=== PATIENT | female | born 1995 | race Caucasian/White ===

== ENCOUNTER 2016-09-29 18:57 | Emergency (ER) | payer OTHER ==
[~2016-09-29] VITALS: Ht 175.3 cm; Wt 95.1 kg
[~2016-09-29 18:57] MED LIST: AMOX500T PO; DEPO400I IM; DICL75 PO
[2016-09-29 19:01] VITALS: BP 141/84; PULSE 81; RESP 14; TEMP 97.9; O2SAT 100
[2016-09-29 19:10] VITALS: BP 143/61; PULSE 75; RESP 18; O2SAT 100
[2016-09-29] MEDS ORDERED: ORTHTAB4 PO (19:19)
[2016-09-29] MEDS ORDERED: [UNRECOGNIZED DRUG - CODE] (19:19)
--- NOTE | 2016-09-29 19:26 | PD ---
HPI Chief Complaint: Complaint Time Seen by Provider: 19:21 Travel History International Travel<30 days: No Contact w/Intl Traveler<30days: No Traveled to known affect area: No History of Present Illness HPI 21-year-old female presents to the emergency department by private transportation the care of family for evaluation of one day of dysuria 5/10 in intensity with urinary urgency and frequency. Patient denies fever chills nausea vomiting generalized abdominal pain flank pain hematuria vaginal discharge or vaginal bleeding. Patient's last period was one week ago and heavy flow however she has just changed from Depakote injections to control pills. Patient is a nonsmoker. Patient is unable to identify exacerbating or alleviating factors other than she does note burning with urination. Patient denies any known exposure to persons with sexual transmitted disease. Patient denies again any vaginal discharge or abnormal vaginal bleeding. Patient has had urinary tract infection once before in the past but does not have him routinely. Patient also has history of migraines and denies previous surgeries. Patient did take a one-time dose of Azo over-the -counter. PFSH Past Medical History Narrative Medical Migraines; no tobacco use; nursing notes reviewed Diminished Hearing: No ?: Unknown Social History Alcohol Use: No Tobacco Use: No Substance Use: No Allergies-Medications (Allergen,Severity, Reaction): Coded Allergies: No Known Allergies (Verified , 09/29/16) Reported Meds & Prescriptions Reported Meds & Active Scripts Active Reported Azo Urinary Pain Relief (Phenazopyridine HCl) 95 Mg Tab Ortho Tri-Cyclen (Norgestimate-Ethinyl Estradiol) 0.18/0.215/0.25 mg-35 Mcg Tab 1 Tab PO HS Review of Systems Except as stated in HPI: all other systems reviewed are Neg General / Constitutional: No: Fever, Chills HENT: No: Congestion Cardiovascular: No: Chest Pain or Discomfort Respiratory: No: Shortness of Breath Gastrointestinal: No: Nausea, Vomiting, Diarrhea, Abdominal Pain Genitourinary: Positive: Urgency, Frequency, Dysuria, No: Pelvic Pain, Flank Pain, Discharge, Vaginal Bleeding Musculoskeletal: No: Myalgias, Arthralgias Skin: No Rash Neurologic: No: Weakness Psychiatric: No: Anxiety Hematologic/Lymphatic: No: Lymph Node Enlargement Physical Exam Narrative GENERAL: Well-developed well-nourished female in no acute distress no respiratory distress SKIN: Warm and dry. HEAD: Normocephalic. EYES: No scleral icterus. No injection or drainage. NECK: Supple, trachea midline. No JVD or lymphadenopathy. CARDIOVASCULAR: Regular rate and rhythm without murmurs, gallops, or rubs. RESPIRATORY: Breath sounds equal bilaterally. No accessory muscle use. GASTROINTESTINAL: Abdomen soft, non-tender other than mild suprapubic pressure to direct palpation, no guarding, no rebound, nondistended. MUSCULOSKELETAL: No cyanosis, or edema. BACK: Nontender without obvious deformity. No CVA tenderness. Data Data Last Documented VS Vital Signs Date Time Temp Pulse Resp B/P Pulse Ox O2 Delivery O2 Flow Rate FiO2 09/29/16 19:10 75 18 143/61 100 Room Air 09/29/16 19:01 97.9 Orders Ed Urine Pregnancytest Poc (09/29/16 19:21) Urinalysis - C+S If Indicated (09/29/16 19:21) Urine Culture (09/29/16 19:30) Labs Laboratory Tests Test 09/29/16 19:30 Urine Color YELLOW Urine Turbidity HAZY Urine pH 6.0 Urine Specific [place] 1.026 Urine Protein NEG mg/dL Urine Glucose (UA) NEG mg/dL Urine Ketones NEG mg/dL Urine Occult Blood NEG Urine Nitrite NEG Urine Bilirubin NEG Urine Leukocyte Esterase TRACE Urine RBC 0-3 /hpf Urine WBC 25-49 /hpf Urine WBC Clumps RARE Urine Squamous Epithelial 0-5 /hpf Cells Urine Bacteria RARE /hpf Urine Mucus MOD /lpf Microscopic Urinalysis Comment CULTURE INDICATED MDM Medical Decision Making Medical Screen Exam Complete: Yes Emergency Medical Condition: Yes Medical Record Reviewed: Yes Interpretation(s) POChcg: negative UA: Positive for bacteria leukocyte Estrace white blood cells and clumped white blood cells; culture indicated Differential Diagnosis UTI, PID, ectopic ; also to consider STI, unlikely ovarian torsion Narrative Course Urine specimen collected and sent for resulting [id number] test is negative urinalysis is abnormal with culture indicated; patient informed of urinalysis results and given first dose of antibiotic in the emergency department Bactrim DS times one dose as well as ibuprofen 6 mg for discomfort complaint of 5-6/10 in intensity. Patient is otherwise stable for outpatient management and follow-up with her primary care provider. Diagnosis Primary Impression: UTI (urinary tract infection) Referrals: Primary Care Physician call for appointment Patient Instructions: General Instructions Additional Instructions: Increase fluid hydration Complete course of antibiotic as prescribed Follow-up with your primary care provider Return to the emergency department for any concerns or change in condition Take acetaminophen/Tylenol as often as every 4 hours as needed for fever 100.4 F or greater or for minor discomfort Take ibuprofen/Advil/Motrin every 6-8 hours as needed for fever 100.4F or greater or for pain associated with inflammation; may take high-dose ibuprofen 800 mg as often as every 8 hours avoid high-dose use of ibuprofen for greater than 2-3 days Med/Other Pt SpecificInfo: Prescription(s) given Scripts Sulfamethoxazole-Trimethoprim (Bactrim DS)800-160 Mg Tab1 Tab PO BID #14 TAB Ref 0 Prov:Nury Shepard MD 09/29/16 Disposition: 01 DISCHARGE HOME Condition: Stable Nury Shepard MD September 29, 2016 19:26
[2016-09-29 19:48] LABS: BLOOD, URINE NEG (NEG); GLUCOSE,URINE NEG (NEG); KETONE, URINE NEG (NEG); NITRITE,URINE NEG (NEG)
[2016-09-29 20:16] LABS: URINE COLOR YELLOW (YELLW/STRAW)
[2016-09-29 20:17] LABS: MUCUS URINE MOD /lpf (OCC)
[2016-09-29 20:18] LABS: BACTERIA, URINE RARE /hpf; COMMENT (UR) CULTURE INDICATED; CULTURE IF INDICATED CULTURE INDICATED; RBC, URINE 0-3 /hpf (0-3); SQUAMOUS EPITHELIAL CELL URINE 0-5 /hpf (0-5)
[2016-09-29 20:30] VITALS: BP 129/75; PULSE 82; RESP 18; O2SAT 98
[2016-09-29] MEDS ORDERED: SULFAMETHOXAZOLE-TRIMETHOPRIM 400-80 MG TAB PO ONE (20:30)
[2016-09-29] MEDS ORDERED: IBUPROFEN 600 MG TAB PO ONE (20:30)
[2016-09-29] MEDS ORDERED: BACT800T5 PO (20:32)
== END 2016-09-29 21:00 | disposition home or self-care (01) ==
LOC: PHED 18:57
DX: N39.0 Urinary tract infection, site not specified (principal)
CPT/HCPCS: 81001; 84703; 87086; 99283